=== PATIENT | male | born 1995 | race Hispanic/Latino ===

== ENCOUNTER 2017-01-26 01:59 | Emergency (ER) | payer OTHER ==
[2017-01-26] MEDS ORDERED: Sodium Chloride 0.9% 1,000 ML IV STA ×3 (02:20→03:52)
[2017-01-26 03:07] LABS: CHLORIDE 98 mmol/L (98-107)
[2017-01-26 03:08] LABS: POTASSIUM 3.9 MMOL/L (3.6-5.0); SODIUM 135 mmol/l (132-148)
[2017-01-26 03:10] LABS: ALB/GLOB RATIO 1.7 (1.0-2.1); ALKALINE PHOSPHATASE 48 U/L (38-126); ALT/SGPT 28 U/L (21-72); AST/SGOT 34 U/L (17-59); BILIRUBIN,TOTAL 0.9 mg/dl (0.2-1.3); BLOOD UREA NITROGEN 13 mg/dl (9-20); CALCIUM 10.1 mg/dL (8.4-10.2); CARBON DIOXIDE 27 mmol/L (22-30); GFR AFRICAN-AMERICAN > 60; GLUCOSE,RANDOM 130 mg/dL (75-110); LIPASE 37 U/L (23-300); TOTAL PROTEIN 7.7 G/DL (6.3-8.2)
[2017-01-26 03:17] LABS: BASO % 0.4 % (0.0-2.0); EOS % 0.2 % (0.0-4.0); HEMATOCRIT 38.5 % (35.0-51.0); LYMPH % 9.8 % (20.0-40.0); MEAN CELL VOLUME 85.9 fl (80.0-94.0); MEAN CORPUSCULAR HGB CONC 34.9 g/dL (33.0-37.0); MEAN PLATELET VOLUME 8.3 fl (7.2-11.7); MONO # 1.1 K/uL (0.0-0.8); MONO % 10.7 % (0.0-10.0); NEUT # 8.2 K/uL (1.8-7.0); NEUT % 78.9 % (50.0-75.0); PLATELET COUNT 198 K/uL (130-400); RED CELL DISTRIBUTION WIDTH 12.9 % (11.5-14.5); WHITE BLOOD COUNT 10.4 K/uL (4.8-10.8)
--- NOTE | 2017-01-26 04:14 | ED PDOC ---
HPI:Nausea, Vomiting, Diarrhea Time Seen by Provider: 01/26/17 02:02 Chief Complaint (Nursing): Abdominal Pain Chief Complaint (Provider): v/d History Per: Patient History/Exam Limitations: no limitations Onset/Duration Of Symptoms: Days (2) Current Symptoms Are (Timing): Intermittent Episodes Have you had recent travel within the past 21 days to any of the following countries: [place], [place], [place] or [place]?: No Additional Complaint(s): 21yo male presents to the ED with c/o v/d x 2 days. Patient states he has had multiple episodes of diarrhea per day. No vomiting today but had a couple episodes yesterday. Reports intermittent abdominal pain, none at present. Patient had severe pain earlier today which is main reason for presentation. Denies fevers, sick contacts, recent travel. Past Medical History Reviewed: Historical Data, Nursing Documentation, Vital Signs Vital Signs: Last Vital Signs Temp 98.2 F 01/26/17 02:02 Pulse 85 01/26/17 02:02 Resp 17 01/26/17 02:02 BP 144/96 H 01/26/17 02:02 Pulse Ox 98 01/26/17 02:02 - Medical History PMH: No Chronic Diseases - Surgical History Surgical History: No Surg Hx - Family History Family History: States: No Known Family Hx - Home Medications Home Medications: Ambulatory Orders Medication Instructions Recorded Dicyclomine [Dicyclomine HCl] 10 mg PO Q8 PRN #15 cap 01/26/17 Ondansetron ODT [Zofran ODT] 4 mg PO Q8 PRN #12 odt 01/26/17 - Allergies Allergies/Adverse Reactions: Allergies Allergy/AdvReac Type Severity Reaction Status Date / Time codeine Allergy Intermediate RASH Verified 01/26/17 02:06 Review of Systems ROS Statement: Except As Marked, All Systems Reviewed And Found Negative Constitutional: Positive for: Other (no sick contacts or recent travel ). Negative for: Fever Gastrointestinal: Positive for: Vomiting, Abdominal Pain, Diarrhea Physical Exam - Reviewed Nursing Documentation Reviewed: Yes Vital Signs Reviewed: Yes - Physical Exam Appears: Positive for: Well, No Acute Distress Head Exam: Positive for: ATRAUMATIC, NORMAL INSPECTION, NORMOCEPHALIC Skin: Positive for: Normal Color, Warm, Dry Eye Exam: Positive for: Normal appearance, EOMI, PERRL ENT: Positive for: Normal ENT Inspection Neck: Positive for: Normal, Painless ROM, Supple Cardiovascular/Chest: Positive for: Regular Rate, Rhythm. Negative for: Murmur , Tachycardia Respiratory: Positive for: Normal Breath Sounds. Negative for: Wheezing, Respiratory Distress Gastrointestinal/Abdominal: Positive for: Normal Exam, Soft. Negative for: Tenderness Back: Positive for: Normal Inspection. Negative for: L CVA Tenderness, R CVA Tenderness Extremity: Positive for: Normal ROM. Negative for: Deformity, Swelling Neurologic/Psych: Positive for: Alert, Oriented - Laboratory Results Result Diagrams: 01/26/17 02:35 01/26/17 02:35 - ECG O2 Sat by Pulse Oximetry: 98 Pulse Ox Interpretation: Normal (RA) Medical Decision Making Medical Decision Makin: Impression: vomiting and diarrhea DDx: acute gastroenteritis; other conditions considered but not listed Plan: CMP, Lipase, CBC Bentyl 10mg PO, Imodium 4mg PO, Zofran 4mg IVP, IVF reassess 0330: On re-eval, patient feels better. No pain, no nausea. Scribe Attestation: Documented by Dixie Whaley acting as a scribe for Lizandro Acevedo MD. Provider Scribe Attestation: All medical record entries made by the Scribe were at my direction and personally dictated by me. I have reviewed the chart and agree that the record accurately reflects my personal performance of the history, physical exam, medical decision making, and the department course for this patient. I have also personally directed, reviewed, and agree with the discharge instructions and disposition. Disposition - Clinical Impression Clinical Impression: Vomiting and diarrhea - Patient ED Disposition Is Patient to be Admitted: No Doctor Will See Patient In The: Office Counseled Patient/Family Regarding: Studies Performed, Diagnosis, Need For Followup - Disposition Disposition Time: 04:28 Condition: GOOD Additional Instructions: Return for worsening. Take medications as instructed. Follow up with your PCP in 2 days. Prescriptions: Dicyclomine [Dicyclomine HCl] 10 mg PO Q8 PRN #15 cap PRN Reason: Diarrhea Ondansetron ODT [Zofran ODT] 4 mg PO Q8 PRN #12 odt PRN Reason: Nausea/Vomiting Instructions: Gastroenteritis (ED)
[2017-01-26 04:44] VITALS: BP 133/65; PULSE 79; RESP 18; TEMP 99.3; O2SAT 99
[2017-01-26 06:27] LABS: BASOPHIL 1 % (0-2); EOSINOPHIL 1 % (0-7); NEUTROPHIL 78 % (42-75); TOTAL CELLS COUNTED 100
== END 2017-01-26 04:43 | disposition home or self-care (01) ==
LOC: H.ER 01:59
DX: R11.10 Vomiting, unspecified (principal); R19.7 Diarrhea, unspecified; K52.9 Noninfective gastroenteritis and colitis, unspecified

== ENCOUNTER 2017-01-29 11:37 | Observation (INO) | payer OTHER ==
--- NOTE | 2017-01-29 11:50 | ED PDOC ---
HPI: General Adult Time Seen by Provider: 01/29/17 11:47 Chief Complaint (Nursing): GI Problem Chief Complaint (Provider): abdominal pain History Per: Patient History/Exam Limitations: no limitations Additional Complaint(s): 21yo male brought by mom for evaluation after 4 days of abdominal pain, nausea and watery non-bloody diarrhea. Per mom patient was initially seen here, given 3L IV fluids, bentyl, zofran and discharged. Patient had normal appetite after discharge but diarrhea persistent. Yesterday patient went to his baseball game but had difficulty participating and had to leave early due to persistent watery non-bloody diarrhea. Patient now has chills, abdominal cramping with bloating. Mom states patient lost 11lbs in 6 days from 195lb to 184lb. Patient had appointment with GI later this afternoon but mom was concerned patient appeared too ill so he was brought here instead. Past Medical History Reviewed: Historical Data, Nursing Documentation, Vital Signs Vital Signs: Last Vital Signs Temp 97.7 F 01/30/17 08:11 Pulse 51 L 01/30/17 08:11 Resp 20 01/30/17 08:11 BP 130/50 L 01/30/17 08:11 Pulse Ox 100 01/30/17 08:11 - Medical History PMH: Hypothyroidism - Surgical History Surgical History: Tonsillectomy Other surgeries: meniscus repair - Family History Family History: States: No Known Family Hx - Living Arrangements Living Arrangements: With Family - Social History Current smoker - smoking cessation education provided: No Alcohol: None Drugs: Denies - Home Medications Home Medications: Ambulatory Orders Medication Instructions Recorded Dicyclomine [Dicyclomine HCl] 10 mg PO Q8 PRN #15 cap 01/26/17 Ondansetron ODT [Zofran ODT] 4 mg PO Q8 PRN #12 odt 01/26/17 Levothyroxine Sodium [Levoxyl] 50 mcg PO DAILY 01/29/17 Multivitamin [Men's Multi-Vitamin] 1 tab PO DAILY 01/29/17 [place]-3 Fatty Acids/Fish Oil [Fish 1 cap PO DAILY 01/29/17 Oil 1,000 mg Capsule] - Allergies Allergies/Adverse Reactions: Allergies Allergy/AdvReac Type Severity Reaction Status Date / Time codeine Allergy Intermediate RASH Verified 01/29/17 11:44 Review of Systems ROS Statement: Except As Marked, All Systems Reviewed And Found Negative Constitutional: Positive for: Chills, Weight loss. Negative for: Fever Gastrointestinal: Positive for: Nausea, Abdominal Pain, Diarrhea, Rectal Pain. Negative for: Vomiting Physical Exam - Reviewed Nursing Documentation Reviewed: Yes Vital Signs Reviewed: Yes - Physical Exam Appears: Positive for: Non-toxic, Uncomfortable Head Exam: Positive for: ATRAUMATIC, NORMAL INSPECTION, NORMOCEPHALIC Skin: Positive for: Warm, Dry Eye Exam: Positive for: EOMI, PERRL Cardiovascular/Chest: Positive for: Regular Rate, Rhythm Respiratory: Positive for: Normal Breath Sounds. Negative for: Rales, Rhonchi, Wheezing Gastrointestinal/Abdominal: Positive for: Normal Exam, Soft. Negative for: Tenderness Back: Negative for: L CVA Tenderness, R CVA Tenderness Rectal: Positive for: Other (ED Scribe David Cordoba present as freight traffic consultant. Skin in rectal area slightly excoriated, no bleeding, no hemorrhoids. ) Extremity: Positive for: Normal ROM Neurologic/Psych: Positive for: Alert, Oriented (x3) - Laboratory Results Result Diagrams: 01/30/17 06:50 01/30/17 06:50 - ECG O2 Sat by Pulse Oximetry: 100 (RA) Pulse Ox Interpretation: Normal Medical Decision Making Medical Decision Making: diarrhea, weakness rule out stool infection vs viral infection 1147 Labs ordered. Pepcid, IV fluids, zofran given. Patient declines analgesics at this time. 14:30 Discussed results of labs with patient and family, which could be due to either a viral illness or a possible inflammatory bowel disease. spoke with GI salesperson surgical appliances Tavares Cortes MD who will see pt govind. 14:47 Provider spoke with King Shrestha MD, medical services on-call. pt will be admitted for iv hydration and to be seen by GI. pt and mother agreeable to plan. Disposition - Clinical Impression Clinical Impression: Vomiting and diarrhea - Patient ED Disposition Is Patient to be Admitted: Yes Doctor Will See Patient In The: Hospital Counseled Patient/Family Regarding: Studies Performed, Diagnosis - Disposition Disposition Time: 13:00 Condition: STABLE Additional Comments - Additional Comments Additional Comments: Scribe Attestation: Documented by David Cordoba acting as a scribe for Leonel Segura MD. Provider Scribe Attestation: All medical record entries made by the Scribe were at my direction and personally dictated by me. I have reviewed the chart and agree that the record accurately reflects my personal performance of the history, physical exam, medical decision making, and the department course for this patient. I have also personally directed, reviewed, and agree with the discharge instructions and disposition.
[2017-01-29] MEDS ORDERED: Sodium Chloride 0.9% 1,000 ML IV STA ×2 (11:58→14:24)
[2017-01-29 12:31] LABS: ALB/GLOB RATIO 1.5 (1.0-2.1); ALKALINE PHOSPHATASE 51 U/L (38-126); ALT/SGPT 27 U/L (21-72); AST/SGOT 29 U/L (17-59); BILIRUBIN,TOTAL 1.2 mg/dl (0.2-1.3); BLOOD UREA NITROGEN 14 mg/dl (9-20); CARBON DIOXIDE 28 mmol/L (22-30); CHLORIDE 99 mmol/L (98-107); GFR AFRICAN-AMERICAN > 60; GLUCOSE,RANDOM 86 mg/dL (75-110); LIPASE 30 U/L (23-300); POTASSIUM 4.2 MMOL/L (3.6-5.0); SODIUM 139 mmol/l (132-148); TOTAL PROTEIN 7.6 G/DL (6.3-8.2)
[2017-01-29 12:32] LABS: BASO % 0.3 % (0.0-2.0); EOS # 0.1 K/uL (0.0-0.7); EOS % 1.3 % (0.0-4.0); HEMATOCRIT 40.8 % (35.0-51.0); LYMPH # 1.5 K/uL (1.0-4.3); LYMPH % 20.9 % (20.0-40.0); MEAN CELL VOLUME 86.1 fl (80.0-94.0); MEAN CORPUSCULAR HEMOGLOBIN 29.2 pg (27.0-31.0); MEAN CORPUSCULAR HGB CONC 33.9 g/dL (33.0-37.0); MONO % 14.4 % (0.0-10.0); NEUT # 4.5 K/uL (1.8-7.0); NEUT % 63.1 % (50.0-75.0); RED CELL DISTRIBUTION WIDTH 12.9 % (11.5-14.5)
[2017-01-29 14:06] LABS: RBC URINE 1 /hpf (0-3); URINE BACTERIA RARE (<OCC); URINE BILIRUBIN NEGATIVE (NEGATIVE); URINE BLOOD NEGATIVE (NEGATIVE); URINE COLOR YELLOW (YELLOW); URINE GLUCOSE (UA) NEG (Normal); URINE KETONE NEGATIVE (NEGATIVE); URINE LEUKOCYTE ESTERASE NEG Leu/uL (Negative); URINE PROTEIN 30 mg/dL (NEGATIVE); URINE UROBILINOGEN 0.2-1.0 mg/dL (0.2-1.0); WBC URINE 1 /hpf (0-5)
[2017-01-29] MEDS: Lactated Ringer's 1,000 ML IV SCH ×2 (16:57→22:44)
[2017-01-29 21:21] VITALS: RESP 20
[2017-01-29 22:49] LABS: FECAL LEUKOCYTES NEGATIVE (NEGATIVE)
[2017-01-29] MEDS ORDERED: Lidocaine 2.5% OINTMENT TOP ONE (22:57)
--- NOTE | 2017-01-29 23:29 | CP.PCM.CON ---
History of Present Illness - History of Present Illness History of Present Illness: 21 yo male admitted after 5 days of copious diarrhea and anal apin. Patient has been having large amounts of watery diarrhea with resultant 11 pound weight loss since . On Sunday AM came to hospital and given fluids and was a little better. Symptoms got worst Sunday night and this morning. Has also been c /o severe rectal pain. No recent travel . No shellfish. Did eat premade tilapia fish on Sunday but nobody else who ate it got sick. No recent antibiotics. 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 Review of Systems - Constitutional Constitutional: absent: Chills - EENT Eyes: absent: Blurred Vision Ears: absent: Ear Discharge Nose/Mouth/Throat: absent: Epistaxis - Cardiovascular Cardiovascular: absent: Chest Pain - Respiratory Respiratory: absent: Dyspnea - Gastrointestinal Gastrointestinal: As Per HPI Past Patient History - Past Medical History & Family History Past Medical History?: Yes - Past Social History Smoking Status: Never Smoked - CARDIAC Hx Cardiac Disorders: No - PULMONARY Hx Respiratory Disorders: No - NEUROLOGICAL Hx Neurological Disorder: No - HEENT Hx HEENT Problems: No - RENAL Hx Chronic Kidney Disease: No - ENDOCRINE/METABOLIC Hx Hypothyroidism: Yes - HEMATOLOGICAL/ONCOLOGICAL Hx Blood Disorders: No Hx AIDS: No Hx Human Immunodeficiency Virus (HIV): No - INTEGUMENTARY Hx Dermatological Problems: No - MUSCULOSKELETAL/RHEUMATOLOGICAL Hx Musculoskeletal Disorders: No Hx Falls: No - GASTROINTESTINAL Hx Gastrointestinal Disorders: No - GENITOURINARY/GYNECOLOGICAL Hx Genitourinary Disorders: No - PSYCHIATRIC Hx Psychophysiologic Disorder: No Hx Substance Use: No - SURGICAL HISTORY Hx Orthopedic Surgery: Yes (meniscus repair) Hx Tonsillectomy: Yes - ANESTHESIA Hx Anesthesia: No Meds Allergies/Adverse Reactions: Allergies Allergy/AdvReac Type Severity Reaction Status Date / Time codeine Allergy Intermediate RASH Verified 01/29/17 11:44 - Medications Medications: Current Medications Hydrocortisone (Cortizone 1% Cream) 1 applic TOP BID [facility] Last Admin: 01/29/17 20:05 Dose: 1 applic Lactated Ringer's (Lactated Ringer's) 1,000 mls @ 150 mls/hr IV .Q6H40M [facility] Last Admin: 01/29/17 22:44 Dose: 150 mls/hr Ketorolac Tromethamine (Toradol) 30 mg IM Q6 PRN PRN Reason: Pain, Mild (1-3) Ketorolac Tromethamine (Toradol) 30 mg IVP Q6 PRN PRN Reason: pain Levothyroxine Sodium (Synthroid) 50 mcg PO DAILY@0630 [facility] Ondansetron HCl (Zofran Inj) 4 mg IVP Q4 PRN PRN Reason: Nausea/Vomiting Physical Exam - Head Exam Head Exam: NORMAL INSPECTION - Eye Exam Pupil Exam: PERRL - ENT Exam ENT Exam: Mucous Membranes Moist - Neck Exam Neck exam: Positive for: Normal Inspection - Respiratory Exam Respiratory Exam: Clear to Auscultation Bilateral - Cardiovascular Exam Cardiovascular Exam: REGULAR RHYTHM - GI/Abdominal Exam GI & Abdominal Exam: Normal Bowel Sounds, Soft. absent: Tenderness Additional comments: Rectal with soreness of anal sphincter but no swelling or exudate. Results - Vital Signs Recent Vital Signs: Last Vital Signs Temp 98 F 01/29/17 21:20 Pulse 53 L 01/29/17 21:20 Resp 20 01/29/17 21:20 BP 121/58 L 01/29/17 21:20 Pulse Ox 99 01/29/17 21:20 - Labs Result Diagrams: 01/29/17 12:00 01/29/17 12:15 Labs: Laboratory Results - last 24 hr 01/29/17 01/29/17 15:00 15:00 Stool Occult Blood Positive H Stool Leukocytes, Qual Negative Assessment & Plan (1) Vomiting and diarrhea Assessment and Plan: Likely infectious gastroenteritis. Etiologic agent not clearly identified but since this is already day 6, even if bacterial, at this point has likely run it' s course. Will give antibiotics if diarrhea and abdominal pain comes back or patient develops fever. Lidocaine jelly perianally. Stool studies pending. Will advance diet in the morning. Status: Acute
[2017-01-29] MEDS ORDERED: Lidocaine 2% Jelly (5 ml) TOP ONE (23:30)
[2017-01-30] MEDS: Lidocaine 2% Jelly (5 ml) TOP PRN ×2 (01:26→09:13)
[2017-01-30 03:22] VITALS: O2SAT 100
[2017-01-30] MEDS: Lactated Ringer's 1,000 ML IV SCH (05:28)
[2017-01-30] MEDS ORDERED: Levothyroxine 50 MCG TAB PO SCH (06:30)
[2017-01-30 07:11] LABS: BASO % 0.8 % (0.0-2.0); EOS # 0.1 K/uL (0.0-0.7); EOS % 1.8 % (0.0-4.0); HEMATOCRIT 37.5 % (35.0-51.0); LYMPH # 1.4 K/uL (1.0-4.3); LYMPH % 22.6 % (20.0-40.0); MEAN CELL VOLUME 86.3 fl (80.0-94.0); MEAN CORPUSCULAR HEMOGLOBIN 29.6 pg (27.0-31.0); MEAN CORPUSCULAR HGB CONC 34.3 g/dL (33.0-37.0); MEAN PLATELET VOLUME 8.2 fl (7.2-11.7); MONO # 1.2 K/uL (0.0-0.8); MONO % 19.2 % (0.0-10.0); NEUT # 3.4 K/uL (1.8-7.0); NEUT % 55.6 % (50.0-75.0); NRBC % 0.1 % (0.0-0.0); RED CELL DISTRIBUTION WIDTH 12.9 % (11.5-14.5); WHITE BLOOD COUNT 6.2 K/uL (4.8-10.8)
[2017-01-30 07:40] LABS: ALB/GLOB RATIO 1.5 (1.0-2.1); ALKALINE PHOSPHATASE 42 U/L (38-126); ALT/SGPT 27 U/L (21-72); AST/SGOT 27 U/L (17-59); BILIRUBIN,TOTAL 0.7 mg/dl (0.2-1.3); BLOOD UREA NITROGEN 9 mg/dl (9-20); CALCIUM 9.6 mg/dL (8.4-10.2); CARBON DIOXIDE 29 mmol/L (22-30); CHLORIDE 103 mmol/L (98-107); CHOLESTEROL 117 mg/dL (0-199); GFR AFRICAN-AMERICAN > 60; GLUCOSE,RANDOM 85 mg/dL (75-110); POTASSIUM 4.4 MMOL/L (3.6-5.0); SODIUM 141 mmol/l (132-148); TOTAL PROTEIN 6.5 G/DL (6.3-8.2)
[2017-01-30 08:09] LABS: THYROID STIMULATING HORMONE 5.32 mIU/ML (0.46-4.68)
[2017-01-30 08:12] VITALS: BP 130/50; PULSE 51; TEMP 97.7
--- NOTE | 2017-01-30 08:55 | CP.PCM.PN ---
Subjective - Date & Time of Evaluation Date of Evaluation: 01/30/17 Time of Evaluation: 08:52 - Subjective Subjective: Patient feeling better with less pain and diarrhea. Rectal pain with topical lidocaine Objective - Vital Signs/Intake and Output Vital Signs (last 24 hours): Temp Pulse Resp BP Pulse Ox 97.7 F 51 L 20 130/50 L 100 01/30/17 08:11 01/30/17 08:11 01/30/17 08:11 01/30/17 08:11 01/30/17 08:11 Intake and Output: 01/30/17 01/30/17 06:59 18:59 Intake Total 2039 Balance 2039 - Medications Medications: Current Medications Hydrocortisone (Cortizone 1% Cream) 1 applic TOP BID [facility] Last Admin: 01/29/17 20:05 Dose: 1 applic Lactated Ringer's (Lactated Ringer's) 1,000 mls @ 150 mls/hr IV .Q6H40M [facility] Last Admin: 01/30/17 05:28 Dose: 150 mls/hr Ketorolac Tromethamine (Toradol) 30 mg IVP Q6 PRN PRN Reason: pain Last Admin: 01/30/17 05:46 Dose: 30 mg Levothyroxine Sodium (Synthroid) 50 mcg PO DAILY@0630 [facility] Last Admin: 01/30/17 06:51 Dose: 50 mcg Lidocaine HCl (Lidocaine Hydrochloride Jelly 2% 5 Ml) 1 ml TOP Q4H PRN PRN Reason: topically pain Last Admin: 01/30/17 01:26 Dose: 1 ml Ondansetron HCl (Zofran Inj) 4 mg IVP Q4 PRN PRN Reason: Nausea/Vomiting - Labs Labs: 01/30/17 06:50 01/30/17 06:50 - Head Exam Head Exam: ATRAUMATIC - Eye Exam Eye Exam: Normal appearance - ENT Exam ENT Exam: Mucous Membranes Moist - Neck Exam Neck Exam: Full ROM - Respiratory Exam Respiratory Exam: Clear to Ausculation Bilateral - Cardiovascular Exam Cardiovascular Exam: REGULAR RHYTHM, +S1, +S2 - GI/Abdominal Exam GI & Abdominal Exam: Soft, Normal Bowel Sounds. absent: Tenderness Assessment and Plan (1) Vomiting and diarrhea Assessment & Plan: Clinically improving. Tolerating light diet. May go home on low fat lactose free diet . May use anorectal lidocaine available OTC. Status: Acute
--- NOTE | 2017-01-30 15:08 | CP.PCM.HP ---
History of Present Illness - History of Present Illness History of Present Illness: CC: Diarrhea. 21 y/o M, [facility] to be Tx for Diarrhea, onset with no relief. Pt appear on 01/29/17 c/o of worsening episodes of diarrhea, about 6-7 prior to admission associated to rectal pain, redness, intensity 8:10 2nd to continue bloody stool. Worsening symptoms: Nausea, vomiting at home, cramping, bloating. Aggravated factor: Pt can not assist to his baseball game 2nd to episodes of diarrhea. Hx of illness: Pt was previously seen in ER [facility] on 01/26/17 for same symptoms , he was Tx with IV fluids, Bentyl , Zofran and after Pt was discharged in improved condition. There after, day [employer] Pt had a baseball game from his school and he did not participate due to current symptoms. PMHx. Hypothyroidism. Pt denied: Fever, chills, urinary symptoms, CP, palpitations, SOB, cough, dizziness, LOC, sick contact, recent travel. Present on Admission - Present on Admission Any Indicators Present on Admission: No Review of Systems - Constitutional Constitutional: Other (negative) - EENT Eyes: Requires Corrective Lenses Ears: Other (negative) Nose/Mouth/Throat: Other (negative) - Cardiovascular Cardiovascular: Other (negative) - Respiratory Respiratory: Other (negative) - Gastrointestinal Gastrointestinal: Abdominal Pain, Bloating, Cramping, Diarrhea, Loose Stools, Nausea, Vomiting - Genitourinary Genitourinary: Other (negative) - Musculoskeletal Musculoskeletal: Other (negative) - Integumentary Integumentary: Other (negative) - Neurological Neurological: Other (negative) - Psychiatric Psychiatric: Other (negative) - Endocrine Endocrine: Other (negative) - Hematologic/Lymphatic Hematologic: Other (negative) Past Patient History - Past Medical History & Family History Past Medical History?: Yes Pertinent Family History: Unknown - Past Social History Smoking Status: Never Smoked Alcohol: None Drugs: Denies Home Situation {Lives}: With Family - CARDIAC Hx Cardiac Disorders: No - PULMONARY Hx Respiratory Disorders: No - NEUROLOGICAL Hx Neurological Disorder: No - HEENT Hx HEENT Problems: No - RENAL Hx Chronic Kidney Disease: No - ENDOCRINE/METABOLIC Hx Endocrine Disorders: Yes Hx Hypothyroidism: Yes - HEMATOLOGICAL/ONCOLOGICAL Hx Blood Disorders: No Hx AIDS: No Hx Human Immunodeficiency Virus (HIV): No - INTEGUMENTARY Hx Dermatological Problems: No - MUSCULOSKELETAL/RHEUMATOLOGICAL Hx Musculoskeletal Disorders: No Hx Falls: No - GASTROINTESTINAL Hx Gastrointestinal Disorders: No - GENITOURINARY/GYNECOLOGICAL Hx Genitourinary Disorders: No - PSYCHIATRIC Hx Psychophysiologic Disorder: No Hx Substance Use: No - SURGICAL HISTORY Hx Orthopedic Surgery: Yes (meniscus repair) Hx Tonsillectomy: Yes - ANESTHESIA Hx Anesthesia: No Meds Allergies/Adverse Reactions: Allergies Allergy/AdvReac Type Severity Reaction Status Date / Time codeine Allergy Intermediate RASH Verified 01/29/17 11:44 Physical Exam - Constitutional Appears: No Acute Distress - Head Exam Head Exam: NORMAL INSPECTION - Eye Exam Eye Exam: PERRL - ENT Exam ENT Exam: Normal Oropharynx - Respiratory Exam Respiratory Exam: NORMAL BREATHING PATTERN - Cardiovascular Exam Cardiovascular Exam: REGULAR RHYTHM - Extremities Exam Extremities exam: Positive for: normal inspection - Back Exam Back exam: NORMAL INSPECTION - Neurological Exam Neurological exam: Alert, Oriented x3 Additional comments: No motor sensory deficit. - Psychiatric Exam Psychiatric exam: Normal Mood - Skin Skin Exam: Normal Color, Warm Results - Vital Signs Recent Vital Signs: Last Vital Signs Temp 97.7 F 01/30/17 08:11 Pulse 51 L 01/30/17 08:11 Resp 20 01/30/17 08:11 BP 130/50 L 01/30/17 08:11 Pulse Ox 100 01/30/17 08:11 reviewed [place] - Labs Result Diagrams: 01/30/17 06:50 01/30/17 06:50 Labs: Laboratory Results - last 24 hr 01/29/17 01/29/17 01/30/17 15:00 15:00 06:50 WBC 6.2 D RBC 4.35 L Hgb 12.9 Hct 37.5 MCV 86.3 MCH 29.6 MCHC 34.3 RDW 12.9 Plt Count 195 MPV 8.2 Neut % (Auto) 55.6 Lymph % (Auto) 22.6 Wheeler % (Auto) 19.2 H Eos % (Auto) 1.8 Baso % (Auto) 0.8 Neut # 3.4 Lymph # 1.4 Wheeler # 1.2 H Eos # 0.1 Baso # 0.0 Sodium Potassium Chloride Carbon Dioxide Anion Gap BUN Creatinine Est GFR ( Amer) Est GFR (Non-Af Amer) Random Glucose Calcium Total Bilirubin AST ALT Alkaline Phosphatase Total Protein Albumin Globulin Albumin/Globulin Ratio Triglycerides Cholesterol LDL Cholesterol Direct HDL Cholesterol Free T4 TSH 3rd Generation Stool Occult Blood Positive H Stool Leukocytes, Qual Negative 01/30/17 01/30/17 06:50 06:50 WBC RBC Hgb Hct MCV MCH MCHC RDW Plt Count MPV Neut % (Auto) Lymph % (Auto) Wheeler % (Auto) Eos % (Auto) Baso % (Auto) Neut # Lymph # Wheeler # Eos # Baso # Sodium 141 Potassium 4.4 Chloride 103 Carbon Dioxide 29 Anion Gap 13 BUN 9 Creatinine 1.1 Est GFR ( Amer) > 60 Est GFR (Non-Af Amer) > 60 Random Glucose 85 Calcium 9.6 Total Bilirubin 0.7 AST 27 ALT 27 Alkaline Phosphatase 42 Total Protein 6.5 Albumin 4.0 Globulin 2.6 Albumin/Globulin Ratio 1.5 Triglycerides 62 Cholesterol 117 LDL Cholesterol Direct 63 HDL Cholesterol 33 Free T4 1.01 TSH 3rd Generation 5.32 H Stool Occult Blood Stool Leukocytes, Qual reviewed J.P. Assessment & Plan (1) Diarrhea Status: Acute Priority: High (2) Vomiting with nausea, not intractable Status: Acute Priority: High (3) Hypothyroidism Status: Chronic Priority: Medium - Assessment and Plan (Free Text) Plan: Pt was seen and cleared by GI nursing consultant, Pt was Tx with Hydrocortisone cream bid and Lidocaine jelly prn to anal area, Toradol IV, Zofran, Pepcid. Pt stated pain intensity today is 0:10, tolerating well bland diet, no diarrhea today. Pt improved and is stable to be discharged, see instruction medication sheet. GI consult appreciated. - Date & Time Date: 01/30/17 Time: 11:35
== END 2017-01-30 12:14 | disposition home or self-care (01) ==
LOC: H.ER 11:37 → H.ERHOLD 14:58 → H.PEDS 15:37
PROVIDERS: ADMIT Internal Medicine Pulmonary Disease; ATTEND Internal Medicine Pulmonary Disease
DX: A09 Infectious gastroenteritis and colitis, unspecified (principal); K62.89 Other specified diseases of anus and rectum; E03.9 Hypothyroidism, unspecified; Z88.6 Allergy status to analgesic agent